=== PATIENT | female | born 2000 | race Caucasian/White ===

== ENCOUNTER 2024-03-22 05:17 | Inpatient (IN) | payer MEDICAID ==
[2024-03-22] VITALS (30 sets, daily range): BP systolic 103–146; BP diastolic 53–82; PULSE 67–102; TEMP 98.1–98.6
[~2024-03-22] VITALS: Ht 177.8 cm; Wt 80.9 kg
--- NOTE | 2024-03-22 04:20 | NUR ---
PT TO LR3 VIA WHEELCHAIR, PT STATES SHE SROM'D CLEAR FLUID AT 0320 AND HAVING CONTRACTIONS EVERY 4 MINUTES APART. PT CHANGED INTO CLEAN GOWN AND VOIDED. PT TO BED, SVE /-1 AMNIOTRACE POSITIVE. FLUID IS CLEAR, BUT YELLOW TINGED. CATEGORY 1 TRACING ON MONITOR, ACCELS NO DECELS. THE PATIENT IS IN A LOT OF PAIN AND REQUESTS AN EPIDURAL SOON SHE CAN HAVE ONE. ADMISSION ASSESSMENT COMPLETE. PT POSITIONED WEDGE LEFT. SEE PHYSICIAN NOTIFICATION. NO OTHER CONCERNS REGARDING THE PATIENT AT THIS TIME.
[2024-03-22] MEDS ORDERED: LR 1,000 ML IV SCH (05:30)
[2024-03-22 05:50] LABS: BASO % 0.2 % (0.0-2.0); EOS % 0.4 % (0.0-4.0); GRAN # 7.4 K/mm3 (1.4-6.5); GRAN % 80.8 % (42.2-75.2); HEMOGLOBIN 11.5 g/dl (12.5-16.0); LYMPH # 0.9 K/mm3 (1.2-3.4); LYMPH % 9.4 % (20.0-51.0); MEAN CELL VOLUME 90 fl (80.0-100.0); MEAN CORPUSCULAR HEMOGLOBIN 31 pg (27-31); MEAN CORPUSCULAR HGB CONC 35 g/dl (33.0-37.0); MEAN PLATELET VOLUME 10.4 fl (7.4-10.4); MONO # 0.8 K/mm3 (0.1-0.6); MONO % 8.4 % (1.7-9.3); PLATELET COUNT 169 K/mm3 (130-400); RED BLOOD COUNT 3.69 M/mm3 (4.10-5.30); REDCELL DISTRIBUTION WIDTH-CV 12.5 % (11.5-14.5)
[2024-03-22 05:55] LABS: HEMATOCRIT 33.1 % (37.0-47.0)
[2024-03-22 06:07] LABS: ALANINE AMINOTRANSFERASE 9 U/L (0-55); ALBUMIN 2.5 g/dL (3.5-5.0); ALKALINE PHOSPHATASE 121 U/L (40-150); AST,SGOT 17 U/L (5-34); BILIRUBIN,TOTAL 0.3 mg/dL (0.2-1.2); CALCIUM 8.8 mg/dL (8.4-10.2); CHLORIDE 107 mEq/L (98-107); CREATININE, serum 0.64 mg/dL (0.57-1.11); GLUCOSE 92 mg/dL (70-99); SODIUM 138 mEq/L (136-145); TOTAL PROTEIN 6.2 g/dl (6.2-8.1)
--- NOTE | 2024-03-22 06:20 | NUR ---
NOTIFIED GLADIS ZARATE OF PT REQUEST FOR EPIDURAL AT 0555. PT UP TO THE BATHROOM PRIOR TO PROCEDURE. THE PATIENT BACK TO BED AND SITTING AT THE BEDSIDE. GLADIS ZARATE TO ROOM AT 0610. PT PREPPED AND READY FOR PROCEDURE. MALVIN VELA AT BEDSIDE FOR REPORT. ASSIST IN THE COMPLETION OF PROCEDURE. 0620: SINGLE SHOT PER GLADIS ZARATE. THE PATIENT TOLERATED THE PROCEDURE VERY WELL. PT REPOSITIONED TO [facility]. MALVIN VELA ASSUMED CARE AT THIS TIME. NO OTHER CONCERNS REGARDING THIS PATIENT AT THIS TIME.
[2024-03-22 06:23] LABS: TRICYCLIC ANTIDEPRESS URINE NEGATIVE (NEGATIVE)
[2024-03-22] MEDS ORDERED: ROPivacaine PF 0.2% 200 ML IV ONE (06:26)
[2024-03-22 06:41] LABS: BLOOD UREA NITROGEN < 5 mg/dL (7-19)
[2024-03-22 06:43] LABS: ANION GAP 11 mmol/L (7-16); POTASSIUM 2.7 mEq/L (3.5-4.5)
[2024-03-22] MEDS ORDERED: ePHEDrine 50 MG/10 ML VIAL IV PRN (06:45)
[2024-03-22] MEDS ORDERED: diphenhydrAMINE 50 MG/ML 1 ML VIAL IV PRN (06:45)
[2024-03-22] MEDS ORDERED: Naloxone 0.4 MG/ML VIAL IV PRN ×2 (06:45→13:45)
[2024-03-22] MEDS ORDERED: diphenhydrAMINE 25 MG CAP PO PRN (06:45)
[2024-03-22] MEDS ORDERED: Ondansetron 4 MG/2 ML VIAL IV PRN (06:45)
--- NOTE | 2024-03-22 07:20 | NUR ---
[place] PLACED AT THIS TIME PER THIS RN. SVE AT THIS TIME WELL. 4-/0. PT TOLERATED WELL. PT VITAL SIGNS STABLE. EFM TRACING CAT I.
--- NOTE | 2024-03-22 07:30 | NUR ---
0730DR AWAN ON UNIT. REPORT GIVEN TO DR. AWAN. PT GOT EPIDURAL AT 0621, SROM AT 0320, PUT HER [place] IN AT 0720 AND SVE AT THAT TIME. 4-. SHE ALSO HAD A LOW POTASSIUM OF 2.7. 0735OKAY LETS GIVE HER SOME POTASSIUM. LETS DO PO POTASSIUM CHLORIDE OF 20 MEQ ONCE NOW. THIS RN RESPONDS "OKAY I WILL PUT THAT ORDER IN."
--- NOTE | 2024-03-22 11:19 | NUR ---
0955SVE AT THIS TIME PER THIS RN WITH A FOLLOW BY DR AWAN. /+2. 1000ROOM AND PT SET UP FOR DELIVERY. 1010FOLEY REMOVED AT THIS TIME. 1020THIS RN BEGAN PUSHING WITH THE PT AT THIS TIME. GOOD MATERNAL EFFORT NOTED. EFM TRACING CAT I. PT VITAL SIGNS STABLE. 1045PT BEGAN VOMITING AT THIS TIME. PUSHING PAUSED AT THIS TIME. EFM TRACING CAT I. 1102RESUMED PUSHING AT THIS TIME. 1105DR LV NOTIFIED OF IMPENDING DELIVERY. NURSERY NURSE AND CHARGE NURSE NOTIFIED. 1106DR LV AT BEDSIDE. 1107PT AND ROOM SET UP FOR IMPENDING DELIVERY. 1119SVD OF VIABLE FEMALE INFANT PER DR AWAN. INFANT PLACED ON MATERNAL ABDOMEN. CARE ASSUMED BY NURSERY. 1122SVD OF PLACENTA PER DR AWAN. BILATERAL INNER LABIAL LACERATIONS NOTED PER DR AWAN. PITOCIN BOLUS STARTED AT THIS TIME. REPAIR STARTED AT THIS TIME. 1127REPAIR FINISHED AT THIS TIME PER DR AWAN. FUNDUS FIRM AT U. LOCHIA WNL. PT VITAL SIGNS STABLE. 1130PT AND ROOM PUT BACK TOGETHER. PERICARE PERFORMED. CHUX PAD CHANGED. ICE PACK PLACED ON PERINUEM. PT COMFORTABLE IN BED. FUNDUS FIRM AT U. LOCHIA WNL.
[2024-03-22] MEDS ORDERED: Magnes Hydrox (MOM) 80 MG/ML 30 ML CUP PO PRN (11:45)
[2024-03-22] MEDS ORDERED: Loratadine 10 MG TAB PO PRN (11:45)
[2024-03-22] MEDS ORDERED: oxyCODONE 5 MG TAB PO PRN (13:45)
[2024-03-22] MEDS ORDERED: Measles/Mumps/Rubella Virus Vaccine Live w Diluent 0.5 ML VIAL SQ SCH (13:45)
[2024-03-22] MEDS ORDERED: Acetaminophen 500 MG TAB PO SCH (13:45)
[2024-03-22] MEDS ORDERED: Ibuprofen 800 MG TAB PO SCH (13:45)
[2024-03-22] MEDS ORDERED: Mag/Al Hydrox/Simeth Susp 30 ML CUP PO PRN (13:45)
[2024-03-22] MEDS ORDERED: Phenylephrine/Mineral Oil/Petrolatum 57 GM TUBE RC PRN (13:45)
[2024-03-22] MEDS ORDERED: Witch Hazel 50% Pads Bulk TUB TP PRN (13:45)
[2024-03-22] MEDS ORDERED: Sennosides/Docusate 8.6-50 MG TAB PO SCH (17:00)
[2024-03-22] MEDS ORDERED: LR & Oxytocin 500 ML IV SCH (20:00)
[2024-03-22] MEDS ORDERED: traZODone 50 MG TAB PO PRN (21:00)
[2024-03-23 02:00] VITALS: BP 128/72; PULSE 76; TEMP 98.3
[2024-03-23 07:30] VITALS: BP 116/74; PULSE 71; TEMP 97.3
--- NOTE | 2024-03-23 12:30 | NUR ---
PHONE RANG FROM [facility]AD, THIS RN ANSWERED. IT WAS THE PT AND HER FAMILY. PT WAS LET ONTO THE UNIT AND SHE WENT TO HER ROOM WITH A BAG OF FAST FOOD. THIS RN WENT TO TALK TO PT A FEW MINUTES LATER ABOUT HER LEAVING THE UNIT. PT STATED THAT SHE HAD JUST GONE DOWN TO THE ER TO MEET HER FAMILY. THIS RN LET THE PT KNOW THAT THIS IS A LOCKED UNIT AND SHE IS NOT SUPPOSED TO LEAVE. PT VERBLIZED UNDERSTANDING.
[2024-03-23 17:00] VITALS: BP 139/76; PULSE 82; TEMP 98.5
[2024-03-23 17:02] LABS: COLLECTION METHOD CATHETER
[2024-03-23 17:12] LABS: PH 7.5 (5.0-8.5); URINE APPEARANCE CLEAR (CLEAR/HAZY); URINE BLOOD 2+ (NEGATIVE); URINE COLOR YELLOW (YELLOW); URINE GLUCOSE NEGATIVE (NEGATIVE); URINE KETONE NEGATIVE (NEGATIVE); URINE NITRATE NEGATIVE (NEGATIVE); URINE PROTEIN(semi-quant) NEGATIVE (NEGATIVE)
[2024-03-23 17:23] LABS: URINE BACTERIA OCCASIONAL /hpf (NONE SEEN)
[2024-03-23 17:55] LABS: BASO % 0.3 % (0.0-2.0); EOS % 0.4 % (0.0-4.0); GRAN # 5.6 K/mm3 (1.4-6.5); GRAN % 79.9 % (42.2-75.2); HEMOGLOBIN 10.6 g/dl (12.5-16.0); LYMPH # 0.7 K/mm3 (1.2-3.4); LYMPH % 9.7 % (20.0-51.0); MEAN CELL VOLUME 90 fl (80.0-100.0); MEAN CORPUSCULAR HEMOGLOBIN 31 pg (27-31); MEAN CORPUSCULAR HGB CONC 34 g/dl (33.0-37.0); MEAN PLATELET VOLUME 10.1 fl (7.4-10.4); MONO # 0.6 K/mm3 (0.1-0.6); PLATELET COUNT 176 K/mm3 (130-400); RED BLOOD COUNT 3.45 M/mm3 (4.10-5.30); REDCELL DISTRIBUTION WIDTH-CV 12.7 % (11.5-14.5)
--- NOTE | 2024-03-23 19:08 | NUR ---
1608- PT CALLED RN TO ROOM TO REPORT KIDNEY PAIN. PT REPORTED A HX OF KIDNEY INFECTIONS AND SAID "THIS IS WHAT THEY ALWAYS FEEL LIKE WHEN THEY START." PT ASKED IF SHE COULD GET AN IV AND SOME FLUID. 161- CALLED DR ARRIAGA AND UPDATED HER ON THE PT SITUATION. DR ARRIAGA ORDERED A CATH UA AND A CBC. 1816- CALLED DR ARRIAGA BACK WITH RESULTS. DR ARRIAGA DID NOT FEEL THE LABS INDICATED A KIDNEY INFECTION. SHE WANTS THE PT TO CONTINUE TO ORALLY HYDRATE. DR ARRIAGA WAS ALSO NOTIFIED BY THIS RN THAT IT WAS NOTED THE PT HAD HAD A CRITICAL LAB VALUE -POTASSIUM 2.7. SHE HAD RECIEVED A PO DOSE OF POTASSIUM ON 03/22/[address] ARRIAGA ORDERED A RECHECK ON THAT LAB.
[2024-03-23 19:11] LABS: ALBUMIN 2.3 g/dL (3.5-5.0); BILIRUBIN,TOTAL 0.2 mg/dL (0.2-1.2); CALCIUM 8.6 mg/dL (8.4-10.2); CREATININE, serum 0.65 mg/dL (0.57-1.11); TOTAL PROTEIN 5.7 g/dl (6.2-8.1)
[2024-03-23 19:13] LABS: POTASSIUM 2.7 mEq/L (3.5-4.5)
[2024-03-23 20:48] VITALS: BP 136/70; PULSE 72; TEMP 98
[2024-03-24 08:05] VITALS: BP 130/80; PULSE 82; TEMP 98
[2024-03-24] MEDS ORDERED: IBU800 M1 PO (10:33)
--- NOTE | 2024-03-24 11:04 | NUR ---
Initial visit; Bed Maker spoke with mom and offered Congratulations and God's blessings for the of her daughter. Patient thanked Bed Maker for offering Blessings.
--- NOTE | 2024-03-24 13:40 | NUR ---
adoption social worker received a consult due to screening for presence of illegal drugs in mother. [place] reviewed the chart and did not see any positive results for mother or infant. [place] noted it states "history of marijuana." [place] spoke with RN Dl who reports patient was negative on admission and tested negative at her appointment 07/2023. Dl reports pt states her last use was 06/2023. Cannot be confirmed if she was at this time. RN has no concerns and reports mother is being appropriate with baby and intends to discharge today. [place] placed CPS intake # for risk [id number].
--- NOTE | 2024-03-24 13:45 | NUR ---
DISCHARGE EDUCATION COMPLETED, HEALTH HISTORY GIVEN, QUESTIONS INVITED AND ANSWERED.
== END 2024-03-24 13:45 | disposition home or self-care (01) | DRG 807 ==
LOC: LDR 05:17 → OB 05:17
PROVIDERS: Obstetrics & Gynecology; ADMIT Obstetrics & Gynecology
PROC: 10E0XZZ Delivery of Products of Conception, External Approach (ICD-10-PCS; principal; 2024-03-22)
PROC: 0UQMXZZ Repair Vulva, External Approach (ICD-10-PCS; 2024-03-22)
DX: O24.420 Gestational diabetes mellitus in childbirth, diet controlled (principal); Z37.0 Single live birth; Z3A.38 38 weeks gestation of pregnancy; O70.0 First degree perineal laceration during delivery
CPT/HCPCS: J2405; J2590; J2795; J7120